=== PATIENT | male | born 1930 | race Caucasian/White ===

== ENCOUNTER 2018-02-18 08:31 | Outpatient (CLI) | payer MEDICARE, BC ==
[2018-02-18] MEDS ORDERED: REGADENOSON 0.4 MG/5 ML DISP.SYRIN IVP ONE (10:00)
== END 2018-02-18 23:59 | disposition home or self-care (01) ==
LOC: NM 08:31
PROVIDERS: ATTEND Internal Medicine Cardiovascular Disease
DX: R07.9 Chest pain, unspecified (principal); E11.9 Type 2 diabetes mellitus without complications
CPT/HCPCS: 78452; A9502; J2785